=== PATIENT | female | born 1950 | race Caucasian/White ===

== ENCOUNTER 2018-04-24 15:48 | Emergency (ER) | payer OTHER ==
[~2018-04-24] VITALS: Ht 172.7 cm; Wt 154.2 kg
[2018-04-24 16:01] VITALS: Ht 172.7 cm; Wt 154.2 kg
[2018-04-24 18:06] LABS: microscopic required? YES; urine erythrocyte NEGATIVE (NEGATIVE)
[2018-04-24 19:03] LABS: BASOPHIL % 0.5 % (0-2); PLATELET COUNT 244 x10^3mcL (130-400)
[2018-04-24 19:08] LABS: RED CELL DISTRIBUTION WIDTH 15.7 % (11.5-14.5)
[2018-04-24 19:11] LABS: CALCIUM 8.9 mg/dL (8.5-10.1); CARBON DIOXIDE 28.7 mmol/L (21-32); CHLORIDE SERUM 105 mmol/L (98-107); CREATININE SERUM 0.8 mg/dL (0.6-1.0); GFR1 > 60 mL/min; GLUCOSE SERUM 111 mg/dL (74-106); POTASSIUM SERUM 3.4 mmol/L (3.5-5.1); SODIUM SERUM 142 mmol/L (136-145)
[2018-04-24 19:15] LABS: ALKALINE PHOSPHATASE 111 U/L (46-116); ALT/SGPT 30 U/L (14-59); AST/SGOT 23 U/L (15-37); BILIRUBIN TOTAL 0.5 mg/dL (0.20-1.00); TOTAL PROTEIN, SERUM 7.2 g/dL (6.4-8.2)
[2018-04-24 19:16] LABS: ALBUMIN 3.1 g/dL (3.4-5.0)
[2018-04-24 20:35] VITALS: BP 180/79
== END 2018-04-24 20:20 | disposition home or self-care (01) ==
LOC: ED 15:48
PROVIDERS: Specialist
DX: G89.29 Other chronic pain (principal); M79.605 Pain in left leg; M79.604 Pain in right leg; R60.0 Localized edema; N39.0 Urinary tract infection, site not specified; E66.01 Morbid (severe) obesity due to excess calories; I10 Essential (primary) hypertension; Z90.710 Acquired absence of both cervix and uterus; Z98.51 Tubal ligation status
CPT/HCPCS: 36415; Q0092

== ENCOUNTER 2018-05-03 10:39 | Inpatient (IN) | payer OTHER, MEDICAID ==
[~2018-05-03] VITALS: Ht 152.4 cm; Wt 149.7 kg
[2018-05-03 10:45] VITALS: Ht 152.4 cm; Wt 149.7 kg
[2018-05-03] MEDS ORDERED: NOR10T (15:26)
[2018-05-03] MEDS ORDERED: LASIX20 MG GT (15:26)
[2018-05-03] MEDS ORDERED: GABAPENTIN100 M2 (15:26)
[2018-05-03] MEDS ORDERED: LISINOPRIL2.5 MG (15:26)
[2018-05-03] MEDS ORDERED: CHILDREN'S100 MG/52 (15:27)
[2018-05-03 21:17] VITALS: BP 175/72
[2018-05-03 22:30] VITALS: BP 158/57
[2018-05-04 05:30] VITALS: BP 158/66
[2018-05-04 07:00] LABS: CALCIUM 8.4 mg/dL (8.5-10.1); CARBON DIOXIDE 25.5 mmol/L (21-32); CHLORIDE SERUM 108 mmol/L (98-107); CREATININE SERUM 0.7 mg/dL (0.6-1.0); GFR1 > 60 mL/min; GLUCOSE SERUM 79 mg/dL (74-106); POTASSIUM SERUM 3.1 mmol/L (3.5-5.1); SODIUM SERUM 141 mmol/L (136-145)
[2018-05-04 07:12] LABS: BASOPHIL % 0.4 % (0-2); PLATELET COUNT 236 x10^3mcL (130-400)
[2018-05-04 07:30] LABS: RED CELL DISTRIBUTION WIDTH 15.1 % (11.5-14.5)
[2018-05-04 08:32] VITALS: BP 168/80
[2018-05-04 11:17] LABS: microscopic required? NO
[2018-05-04 11:23] LABS: UA SPECIFIC GRAVITY 1.025 (1.005-1.035); urine erythrocyte NEGATIVE (NEGATIVE)
[2018-05-04 11:32] LABS: AMPHETAMINE QUAL UR NONE DETECTED (See below)
[2018-05-04 17:50] VITALS: BP 126/63
[2018-05-04 21:04] VITALS: BP 106/61
[2018-05-05 05:48] VITALS: BP 141/68
[2018-05-05 08:27] VITALS: BP 164/75
[2018-05-05] MEDS ORDERED: CAT0.1 PO (09:37)
[2018-05-05] MEDS ORDERED: NOR5 PO (09:38)
[2018-05-05] MEDS ORDERED: TEN50 PO (09:38)
[2018-05-05 17:38] VITALS: BP 168/90
[2018-05-05 17:48] VITALS: BP 164/75
[2018-05-05 21:11] VITALS: BP 168/84
== END 2018-05-05 22:55 | DRG 537 ==
LOC: ED 10:39 → MU 18:11
PROVIDERS: Internal Medicine Pulmonary Disease
DX: S76.011A Strain of muscle, fascia and tendon of right hip, initial encounter (principal); Z68.44 Body mass index [BMI] 60.0-69.9, adult; I89.0 Lymphedema, not elsewhere classified; E87.6 Hypokalemia; I16.0 Hypertensive urgency; S70.01XA Contusion of right hip, initial encounter; R54 Age-related physical debility; R26.81 Unsteadiness on feet; I10 Essential (primary) hypertension; I73.9 Peripheral vascular disease, unspecified; M71.20 Synovial cyst of popliteal space [Baker], unspecified knee; M17.0 Bilateral primary osteoarthritis of knee; E66.01 Morbid (severe) obesity due to excess calories; W01.0XXA Fall on same level from slipping, tripping and stumbling without subsequent striking against object, initial encounter; Y92.009 Unspecified place in unspecified non-institutional (private) residence as the place of occurrence of the external cause
CPT/HCPCS: 90658; J1644; J1885; Q0092